=== PATIENT | female | born 1950 | race Caucasian/White ===

== ENCOUNTER → 2016-09-27 | Outpatient (CLI) | payer MEDICARE, OTHER ==
[~2016-09-27] MED LIST: ACETAMINOPHEN PO; AMITIZA PO; AMMONIUM LACTA280 GM TP; ANALGESIC BALM28 GM TP; APAP325 M1 PO; ASPIRIN81 M2 GT; ASPIRIN81 MG GT; ASPIRIN81 MG PO; BACID PO; BACITRACIN15 GM TP; BACITRACIN28.4 G1 TP; BAYER CHEWABLE81 MG PO; BENADRYL25 M3 PO; BONIVA150 MG PO; CALCIUM + D 6001 TA1 PO; CALCIUM CITRATE1 T12 PO; CALCIUM CITRATE1 T15 GT; CARAFATE1 G PO; CIPRO250 MG PO; CITRACAL + D CA1 TA1 PO; CITRACAL200 MG; CITRATE OF MAG296 M1 PO; CLARITIN10 MG PO; COLACE60 MG/15 M PO; CORRECTOL5 MG PO; DEEP SEA NASAL; DIASTAT ACUDIAL1 KIT; DIASTAT10 MG PR; DIAZEPAM10 MG RC; DULCOLAX10 MG/SUPP RC; DULCOLAX5 MG PO; E.E.S. 200200 MG/51; E.E.S. 200200 MG/51 PO; FAST RELIEF LAX10 MG RC; FENOFIBRATE48 MG GT; FENOFIBRATE48 MG PO; FERROUS FUMARAT1 TAB PO; FERROUS GLUCON324 MG PO; GAS RELIEF125 M1 GT; GAS RELIEF125 MG PO; GAS-X125 M1 PO; GAS-X166 MG PO; GAS-X80 MG PO; HYDROXYZINE HCL25 M1 GT; KENALOG63 GM TP; KEPPRA1000 MG GT; KEPPRA1000 MG PO; KEPPRA500 M1 PO; KEPPRA500 M2 PO; KEPPRA500 MG PO; KEPPRA750 MG PO; KETOCONAZOLE 2%; KETOCONAZOLE120 ML TP; LAC-HYDRIN 5113 GM TP; LACTULOSE10 G/15 M2 PO; LACTULOSE10 G/15 ML PO; LAMICTAL PO; LAMICTAL100 MG PO; LAMICTAL150 MG GT; LAMICTAL150 MG PO; LAMICTAL25 MG GT; LAMOTRIGINE150 MG GT; LEVETIRACETAM1000 MG GT; MAG-OXIDE400 MG PO; MIACALCIN4 ML; MILK OF MAGNESIA PO; MULTI VITAMIN1 EACH PO; MYLICON40 MG/0.1 GT; NASAL DECONGEST30 M1 NS; NEXIUM20 MG PO; NON-ASPIRIN PA325 MG GT; OYSTER SHELL 501 TAB GT; PHENERGAN12.5 M2 PR; PRILOSEC PO; PRILOSEC20 MG PO; RANITIDINE HCL150 M1 GT; SALINE NOSE SPR45 M1; SENNA CONCENTR8.6 MG PO; SENNA PO; SENNA8.8 MG/5 M PO; SIMETHICONE125 MG PO; STRESS FORMULA1 EACH PO; TOTAL B; TOTAL B GT; TYLENOL325 M1 GT; VIMPAT100 MG PO; VITAL-D RX TABL1 TAB PO; VITAMIN D 4001 UDTAB PO; VITAMIN D PO; VITAMIN D1000 UNI1 GT; VITAMIN D400 UNI1 PO; VITAMIN D400 UNI2 PO; WATER; ZANTAC150 M1 GT; ZANTAC150 M1 PO; ZANTAC150 MG PO; ZYRTEC10 M2 PO; [UNRECOGNIZED DRUG - OTHER]; [UNRECOGNIZED DRUG - OTHER]; [UNRECOGNIZED DRUG - OTHER] GT; [UNRECOGNIZED DRUG - OTHER] IV; [UNRECOGNIZED DRUG - OTHER] PO; [UNRECOGNIZED DRUG - OTHER] TP
== END | disposition home or self-care (01) ==
LOC: CSSDAY 12:34
DX: M81.0 Age-related osteoporosis without current pathological fracture (principal)
CPT/HCPCS: 76770; 96372; J0897

== ENCOUNTER → 2016-09-29 | Outpatient (CLI) | payer MEDICARE, OTHER ==
--- NOTE | ~2016-09-29 | US17 ---
[facility] A Service of [facility] & [facility] RADIOLOGY TEXT RESULTS PATIENT: JOE SALGADO LOCATION: [facility] : 54 UNIT #: [id number] AGE: [address]: CATHERINE METZGER APRN SEX: F ORDER DR: [id number] [facility] [address] [place], [place] [address] [id number] O MR#: [id number] Acc #: [id number] NAME: JOE SALGADO : 1950 SEX: F STUDY DATE/TIME: 09/29/2016 13:43 UNIT: [facility] ROOM: STUDY DESCRIPTION: US Breast Bilateral Attending Physician: Catherine Metzger Aprn Referring Physician: Catherine Metzger Aprn Ordering Physician: Catherine Metzger Aprn Primary Care Physician: Mack Uribe Sr., M.D. MEDICAL IMAGING REPORT This report is preliminary unless electronic signature is present EXAM Bilateral breast ultrasound 09/29 INDICATIONS 66-year-old presents for routine screening for breast cancer. Patient cannot have a mammogram. FINDINGS Sonographic evaluation is performed of both breasts in multiple planes. Comparison made with 07/20/2015. Exam demonstrates bilateral normal-appearing fibroglandular breast tissue. No masses or fluid collections are identified. IMPRESSION Negative bilateral screening breast ultrasound. Correlation with physical exam findings is recommended. Consider followup in 1 year if indicated. BIRADS: 1. Dictated by... Kemar Ritter Jr., M.D. THIS IS AN ELECTRONICALLY VERIFIED REPORT Kemar Ritter Jr., M.D. at 09/30/2016 4:47 PM JOSEPH/valentín TD: 09/30/2016 11:56 JOB #: [id number] MEDICAL IMAGING REPORT Page 1 of 1 COPY
== END | disposition home or self-care (01) ==
LOC: CGUS 13:13
DX: Z12.39 Encounter for other screening for malignant neoplasm of breast (principal)
CPT/HCPCS: 76641

== ENCOUNTER 2017-01-06 16:58 | Emergency (ER) | payer MEDICARE, OTHER ==
--- NOTE | ~2017-01-06 | CR6 ---
[facility] A Service of [facility] & [facility] RADIOLOGY TEXT RESULTS PATIENT: JOE SALGADO LOCATION: [facility] : 54 UNIT #: [id number] AGE: [address]: Marvin Izquierdo MD SEX: F ORDER DR: [id number] [facility] [address] [place], [place] [address] [id number] E MR#: [id number] Acc #: [id number] NAME: JOE SALGADO : 1950 SEX: F STUDY DATE/TIME: 01/06/2017 18:08 UNIT: [facility] ROOM: STUDY DESCRIPTION: CR Abdomen Portable Sng View Attending Physician: Marvin Izquierdo M.D. Ordering Physician: [id number] Juan Jose Izquierdo Primary Care Physician: Mack Uribe Sr., M.D. MEDICAL IMAGING REPORT This report is preliminary unless electronic signature is present EXAM Supine radiographs of the abdomen the date is 01/06/2017. History Question obstruction. FINDINGS Two supine radiographs of the abdomen and pelvis are presented. Comparison 12/13/2014. The bowel gas pattern is abnormal. There are multiple air-filled mildly distended loops of small bowel throughout the visualized abdomen and pelvis. Air and stool are seen in colon to the level of the rectum. The degree of small bowel distension while relatively mild overall is disproportionately greater than the caliber of the colon. The appearance is somewhat nonspecific. I cannot exclude a partial small bowel obstruction. The possibility of generalized ileus could be considered. At some locations, there is visualization of internal and external castanon of small bowel, particularly in the right upper quadrant. While this might be an artifact, it does raise the possibility of pneumoperitoneum. This could be clarified by upright AP radiograph of the chest to include the bilateral hemidiaphragms if possible for the patient. Alternatively, left lateral decubitus radiograph centered over the liver could be considered. There is what appears to be a enteric percutaneous tube in the left hemiabdomen, presumed to be a gastrostomy tube. Similar in appearance to prior study. No acute bony abnormality. Dictated by... Jovanni Kohli M.D. THIS IS AN ELECTRONICALLY VERIFIED REPORT Jovanni Kohli M.D. at 01/07/2017 2:37 PM [facility] A Service of [facility] RADIOLOGY TEXT RESULTS PATIENT: JOE SALGADO LOCATION: [facility], INCT #: [id number] : 54 UNIT #: [id number] AGE: [address]: Marvin Izquierdo MD SEX: F ORDER DR: DARCY/raheel TD: 01/07/2017 04:53 JOB #: [id number] MEDICAL IMAGING REPORT Page 1 of 1 COPY
== END 2017-01-06 18:18 | disposition home or self-care (01) ==
LOC: CED 16:58
DX: Z71.1 Person with feared health complaint in whom no diagnosis is made (principal); Z79.82 Long term (current) use of aspirin; Z79.899 Other long term (current) drug therapy; Z88.8 Allergy status to other drugs, medicaments and biological substances
CPT/HCPCS: 74000; 99283